=== PATIENT | female | born 1985 | race African-American/Black ===

== ENCOUNTER 2017-02-23 11:09 | Emergency (ER) | payer OTHER ==
[~2017-02-23] VITALS: Ht 165.1 cm; Wt 93.0 kg
[~2017-02-23 11:09] MED LIST: ACETAMINOPHEN325 M1 PO; DELTASONE20 MG PO; FLEXERIL PO; FLONASE 0.05%50 MCG NASAL; MOBIC15 MG PO; NORCO 5-325 TA1 EACH PO; PROVENTIL HFA6.7 G1 INH; ULTRAM 50MG TAB50 MG PO; ZPAK PO
[2017-02-23] MEDS ORDERED: PREDNISONE 20 M20 MG PO (12:11)
[2017-02-23] MEDS ORDERED: FLONASE 0.05%50 MCG NASAL (12:11)
== END 2017-02-23 13:57 | disposition home or self-care (01) ==
LOC: ER 11:09
DX: H69.92 Unspecified Eustachian tube disorder, left ear (principal); J32.9 Chronic sinusitis, unspecified